=== PATIENT | female | born 2000 | race American Indian/Alaskan Native ===

== ENCOUNTER 2019-09-13 02:43 | Emergency (ER) | payer MEDICAID, OTHER ==
[2019-09-13 04:24] LABS: HCG Qualitative,Urine Negative (Negative)
[2019-09-13] MEDS ORDERED: MORPHINE 2 MG/1 ML INJ IV ONE (04:30)
[2019-09-13] MEDS ORDERED: SODIUM CHLORIDE 0.9% 1000 ML 1,000 ML IV ONE (04:30)
[2019-09-13] MEDS ORDERED: ONDANSETRON 4 MG/2 ML INJ IV ONE (04:30)
[2019-09-13 04:32] LABS: Bilirubin,Urine NEG (Negative); Blood,Urine NEG (Negative); Color,Urine Yellow (Yellow); Mucus,Urine FEW /HPF; Protein,Urine <15 mg/dL mg/dL (Negative); Urobilinogen,Urine < 2.0 mg/dL (<2.0); WBC,Urine < 1.0 /HPF (0.0-6.0)
[2019-09-13 05:07] LABS: Basophils % (Auto) 0.1 % (0.0-1.8); Eosinophils % (Auto) 0.3 % (0.0-4.3); Hemoglobin 11.2 gm/dl (10.1-14.3); Lymphocytes # (Auto) 1.4 K/mm3 (1.2-5.4); Lymphocytes % (Auto) 14.7 % (13.4-35.0); Mean Corpuscular HGB Conc 33 % (30-34); Mean Corpuscular Volume 86 fl (79-97); Monocytes # (Auto) 0.8 K/mm3 (0.0-0.8); Monocytes % (Auto) 8.6 % (0.0-7.3); Platelet Count 222 K/mm3 (140-440); Red Blood Count 3.93 M/mm3 (3.65-5.03); Red Cell Distribution Width 13.5 % (13.2-15.2)
[2019-09-13 05:35] LABS: Alanine Aminotransferase 11 units/L (7-56); Albumin 4.6 g/dL (3.9-5); BUN/Creatinine Ratio 30; Blood Urea Nitrogen 15 mg/dL (7-17); Calcium 9.3 mg/dL (8.4-10.2); Hemolysis Index 3
--- NOTE | 2019-09-13 06:23 | Cat Scan Report ---
CT ABDOMEN AND PELVIS WITH IV CONTRAST INDICATION: Abdominal pain. COMPARISON: None available. TECHNIQUE: Axial CT images were obtained through the abdomen and pelvis after 100 mL IV contrast. All CT scans a t this location are performed using CT dose reduction for ALARA by means of automated exposure contro l. FINDINGS -- ABDOMEN: Lung Bases: No acute abnormality. Liver: Normal. Gallbladder: Normal. Bile Ducts: Normal. Pancreas: Normal. Spleen: Normal. Adrenals: Normal. Right Kidney and Proximal Ureter: Normal. Left Kidney and Proximal Ureter: Normal. Stomach and Bowel: Normal. Lymph Nodes: No significant adenopathy. Aorta: No significant abnormality. IVC: Normal. Additional Findings: None. FINDINGS -- PELVIS: Urinary Bladder and Distal Ureters: Normal. Reproductive Organs: Peripherally enhancing fluid-filled structure in the right adnexa measures 4 cm in diameter.. Small amount of nonspecific gas seen within the cervical os. The uterus appears slightl y prominent. Moderate endometrial fluid. Appendix: Normal. Bowel: No acute abnormality. Free Fluid: Moderate to large in size, intermediate in density worrisome for hemoperitoneum of the lo wer pelvis. Lymph Nodes: No significant adenopathy. Additional Findings: None. Skeletal System: No acute abnormality. IMPRESSION: 1. Focal 4 cm mildly complex right ovarian cyst. 2. Moderate free pelvic fluid, nonspecific. This fluid is low to intermediate in density and may repr esent fluid with intermixed hemorrhage/hemoperitoneum of unknown source, possibly from a ruptured ova stephanie cyst.. Signer Name: Brad Oswald MD Signed: 09/13/2019 6:19 AM Workstation Name: [id number]
--- NOTE | 2019-09-13 06:39 | Emergency Department Report ---
<JONATHAN LARSON - Last Filed: 09/13/19 10:51> ED Abdominal Pain HPI - General Chief Complaint: Abdominal Pain Stated Complaint: STOMACH CRAMPS - Related Data Previous Rx's Medication Instructions Recorded Last Taken Type Acetaminophen/Codeine [Tylenol 1 tab PO Q6H PRN #12 tab 09/13/19 Unknown Rx /Codeine # 3 tab] Doxycycline Hyclate 100 mg PO Q12H #20 tablet. 09/13/19 Unknown Rx Promethazine [Phenergan] 25 mg PO Q6HR PRN #12 tab 09/13/19 Unknown Rx methylPREDNISolone [Medrol 4MG 4 mg PO QAM 6 Days #1 tab.ds.pk 09/13/19 Unknown Rx DOSEPAK (21 tabs)] metroNIDAZOLE [Flagyl] 500 mg PO Q12HR 7 Days #14 tab 09/13/19 Unknown Rx Allergies Allergy/AdvReac Type Severity Reaction Status Date / Time cat dander Allergy Hives Verified 03/03/16 02:21 lactase [From Dairy Aid] Allergy Hives Verified 03/03/16 02:21 mold Allergy Hives Verified 03/03/16 02:21 peanut Allergy Hives Verified 03/03/16 02:21 pesticide Allergy Hives Verified 03/03/16 02:21 shellfish derived Allergy Anaphylaxis Verified 03/03/16 02:52 BLACKBERRIES Allergy Hives Uncoded 03/03/16 02:21 MILDEW Allergy Hives Uncoded 03/03/16 02:21 SMOKE Allergy Hives Uncoded 03/03/16 02:21 ED Past Medical Hx - Medications Home Medications: Home Medications Medication Instructions Recorded Confirmed Last Taken Type Acetaminophen/Codeine [Tylenol 1 tab PO Q6H PRN #12 tab 09/13/19 Unknown Rx /Codeine # 3 tab] Doxycycline Hyclate 100 mg PO Q12H #20 tablet. 09/13/19 Unknown Rx Promethazine [Phenergan] 25 mg PO Q6HR PRN #12 tab 09/13/19 Unknown Rx methylPREDNISolone [Medrol 4MG 4 mg PO QAM 6 Days #1 tab.ds.pk 09/13/19 Unknown Rx DOSEPAK (21 tabs)] metroNIDAZOLE [Flagyl] 500 mg PO Q12HR 7 Days #14 tab 09/13/19 Unknown Rx ED Course - Reevaluation(s) Reevaluation #1: 09/13/19 09:47 request and nausea medication and pain medication. She is in no acute distress at present Reevaluation #2: 09/13/19 10:48 Patient given Zofran milligram ODT and hydrocodone 5/3-2 tablets by mouth for nausea and pain which has been relieved. ED Medical Decision Making - Lab Data Result diagrams: 09/13/19 04:43 09/13/19 04:43 Lab Results 09/13/19 09/13/19 09/13/19 Range/Units 04:43 04:43 Unknown WBC 9.6 (4.5-11.0) K/mm3 RBC 3.93 (3.65-5.03) M/mm3 Hgb 11.2 (10.1-14.3) gm/dl Hct 34.0 (30.3-42.9) % MCV 86 (79-97) fl MCH 29 (28-32) pg MCHC 33 (30-34) % RDW 13.5 (13.2-15.2) % Plt Count 222 (140-440) K/mm3 Lymph % (Auto) 14.7 (13.4-35.0) % [place] % (Auto) 8.6 H (0.0-7.3) % Eos % (Auto) 0.3 (0.0-4.3) % Baso % (Auto) 0.1 (0.0-1.8) % Lymph # 1.4 (1.2-5.4) K/mm3 [place] # 0.8 (0.0-0.8) K/mm3 Eos # 0.0 (0.0-0.4) K/mm3 Baso # 0.0 (0.0-0.1) K/mm3 Seg Neutrophils % 76.3 H (40.0-70.0) % Seg Neutrophils # 7.3 (1.8-7.7) K/mm3 Sodium 137 (137-145) mmol/L Potassium 4.0 (3.6-5.0) mmol/L Chloride 103.4 (98-107) mmol/L Carbon Dioxide 22 (22-30) mmol/L Anion Gap 16 mmol/L BUN 15 (7-17) mg/dL Creatinine 0.5 L (0.7-1.2) mg/dL Estimated GFR > 60 ml/min BUN/Creatinine Ratio 30 % Glucose 85 (65-100) mg/dL Calcium 9.3 (8.4-10.2) mg/dL Total Bilirubin 0.20 (0.1-1.2) mg/dL AST 17 (5-40) units/L ALT 11 (7-56) units/L Alkaline Phosphatase 46 (35-129) units/L Total Protein 8.4 H (6.3-8.2) g/dL Albumin 4.6 (3.9-5) g/dL Albumin/Globulin Ratio 1.2 % Lipase 27 (13-60) units/L Urine Color Yellow (Yellow) Urine Turbidity Clear (Clear) Urine pH 5.0 (5.0-7.0) Ur Specific [place] 1.026 (1.003-1.030) Urine Protein <15 mg/dl (Negative) mg/dL Urine Glucose (UA) Neg (Negative) mg/dL Urine Ketones Neg (Negative) mg/dL Urine Blood Neg (Negative) Urine Nitrite Neg (Negative) Ur Reducing Substances Not Reportable Urine Bilirubin Neg (Negative) Urine Ictotest Not Reportable Urine Urobilinogen < 2.0 (<2.0) mg/dL Ur Leukocyte Esterase Neg (Negative) Urine WBC (Auto) < 1.0 (0.0-6.0) /HPF Urine RBC (Auto) 1.0 (0.0-6.0) /HPF U Epithel Cells (Auto) 6.0 (0-13.0) /HPF Urine Mucus Few /HPF Urine HCG, Qual Negative (Negative) - Radiology Data Transvaginal ultrasound dictated by radiologist and report reviewed by myself. Please see report below. Findings [facility] [address] [place] [address] Ultrasound Report Signed Patient: ROBLES AMEZCUA MR#: [id number] : 2000 Acct:[id number] Age/Sex: 19 / F ADM Date: 09/13/19 Loc: ED Attending Dr: Ordering Physician: TINY AWAN Date of Service: 09/13/19 Procedure(s): US transvaginal Accession Number(s): [id number] cc: TINY AWAN ULTRASOUND TRANSVAGINAL HISTORY: Pelvic pain, pain after sex. TECHNIQUE: Transvaginal ultrasound images with color and spectral Doppler interrogation. COMPARISON: CT abdomen pelvis with contrast performed earlier the same day. FINDINGS: The uterus is anteverted and measures 7.5 x 2.7 x 3.8 cm. No evidence for uterine mass. The endometrium measures 9 mm in thickness. No focal mass or fluid collection. There is a large free fluid containing debris throughout the pelvis. No obvious encapsulated abscess. No normal right ovary is identified. There is a complex partially cystic mass with multiple septations in the right adnexa/cul-de-sac measuring up to 6.3 x 3.7 x 4.4 cm. There is peripheral blood flow demonstrated on spectral Doppler waveforms and color Doppler imaging but no internal flow. The left ovary measures 3.3 x 2.5 x 2.9 cm. A complex solid-appearing lesion is identified in the left ovary measuring up to 1.3 cm. Spectral Doppler waveforms demonstrate flow to the left ovary. IMPRESSION: Large complex masslike lesion in the right adnexa/right ovary as described above. The etiology of this is unclear. Considerations include a hemorrhagic ovarian cyst, cystic neoplasm, or possibly a tubo-ovarian abscess. Please correlate with the clinical presentation of the patient. Please note that a ruptured ectopic is not excluded. Large complex free fluid in the pelvis. 1.3 cm cyst predominantly solid lesion in the left ovary. Signer Name: Clint Sullivan Jr, MD Signed: 09/13/2019 8:02 AM Workstation Name: [id number] Transcribed By: TTR Dictated By: CLINT SULLIVAN JR, MD Electronically Authenticated By: CLINT SULLIVAN JR, MD Signed Date/Time: 09/13/19 0802 DD/ 0753 TD/TT: - Medical Decision Making Patient with complex ovarian cysts per ultrasound with free fluid . IMPRESSION: Large complex masslike lesion in the right adnexa/right ovary as described above. The etiology of this is unclear. Considerations include a hemorrhagic ovarian cyst, cystic neoplasm, or possibly a tubo-ovarian abscess. Please correlate with the clinical presentation of the patient. Please note that a ruptured ectopic is not excluded. Large complex free fluid in the pelvis. 1.3 cm cyst predominantly solid lesion in the left ovary I Spoke with Dr. Poole who is the attending physician in the emergency room and [facility] called and waiting call back. 09/13/19 10:[address] Gibbons from [facility] and gave her results of ultrasound and CT scan and also vital signs along with lab results and she wants patient to be discharged home on nausea medication, pain medication and Medrol Dosepak and to follow-up in office in 2 days. I discuss results the patient's and discharge plans and she is in agreement. Lab Work stable. Pain and nausea is controlled. Patient discharged home with prescription for Medrol Dosepak, Tylenol No. 3, Phenergan and doxycycline. ED Disposition Clinical Impression: Nausea and vomiting in adult, Complex cyst of right ovary, Abnormal peritoneal fluid, Bacterial vaginosis Abdominal pain Qualifiers: Abdominal location: lower abdomen, unspecified Qualified Code(s): R10.30 - Lower abdominal pain, unspecified Disposition: TO HOME OR SELFCARE Condition: Stable Instructions: Bacterial Vaginosis (ED), Ovarian Cyst (ED), Acute Nausea and Vomiting (ED), Abdominal Pain (ED) Additional Instructions: Follow-up with your [facility] physician in 24-48 hours for reevaluation. Take medications as needed for pain, complete pelvic rest. Return to the ED immediately if symptoms get worse. Prescriptions: Doxycycline Hyclate 100 mg PO Q12H #20 tablet.dr metroNIDAZOLE [Flagyl] 500 mg PO Q12HR 7 Days #14 tab methylPREDNISolone [Medrol 4MG DOSEPAK (21 tabs)] 4 mg PO QAM 6 Days #1 tab.ds.pk Promethazine [Phenergan] 25 mg PO Q6HR PRN #12 tab PRN Reason: Nausea Acetaminophen/Codeine [Tylenol /Codeine # 3 tab] 1 tab PO Q6H PRN #12 tab PRN Reason: Pain , Severe (7-10) Referrals: PRIMARY CARE, [Primary Care Provider] - 3-5 Days STEPHANIE GIBBONS MD [Staff Physician] - 09/15/19 Forms: Accompanied Note, Work/School Release Form(ED), STI Treatment and Prevention Print Language: KHMER <MERLIN STANTON - Last Filed: 09/15/19 22:53> ED Abdominal Pain HPI - General Source: patient Mode of arrival: Ambulatory Limitations: No Limitations - History of Present Illness Initial Comments: Patient is a nulliparous 19-year-old -[place] female with no past medical history who presents to the ED with complaint of acute onset persistent severe diffuse lower abdominal pain that radiates to the periumbilical area with intractable nausea and vomiting and diarrhea for the last 8 hours, worse in the last 2 hours after having protected sexual intercourse. Patient states that the pain is so severe she is unable to sit still or lay down because of significant pain. Patient denies fever, chills, dysuria, urinary frequency and urgency, vaginal bleeding, low back pain, dizziness, syncope, chest pain or shortness of breath or traumatic injury. MD Complaint: abdominal pain, other (nausea and vomiting) -: Sudden, hour(s) (8) Location: periumbilical, suprapubic Radiation: suprapubic Migration to: no migration Severity scale (0 -10): 8 Quality: cramping, aching, sharp Consistency: constant Improves With: nothing Worsens With: movement Associated Symptoms: denies other symptoms, nausea, vomiting, diarrhea. denies: fever, chills, constipation, dysuria, hematemesis, hematochezia, melena, hematuria, anorexia - Related Data LMP Date: 08/22/19 ED Review of Systems ROS: Stated complaint: STOMACH CRAMPS Other details as noted in HPI Constitutional: denies: chills, fever Eyes: denies: eye pain, eye discharge, vision change ENT: denies: ear pain, throat pain Respiratory: denies: cough, shortness of breath, wheezing Cardiovascular: denies: chest pain, palpitations Endocrine: no symptoms reported Gastrointestinal: abdominal pain, nausea, vomiting, diarrhea Genitourinary: denies: urgency, dysuria, discharge Musculoskeletal: denies: back pain, joint swelling, arthralgia Skin: denies: rash, lesions Neurological: denies: headache, weakness, paresthesias Psychiatric: denies: anxiety, depression Hematological/Lymphatic: denies: easy bleeding, easy bruising ED Past Medical Hx - Past Medical History Previous Medical History?: Yes Additional medical history: ECZEMA - Surgical History Past Surgical History?: No - Social History Smoking Status: Never Smoker Substance Use Type: Alcohol ED Physical Exam - General Limitations: No Limitations General appearance: alert, in no apparent distress - Head Head exam: Present: atraumatic, normocephalic - Eye Eye exam: Present: normal appearance, PERRL, EOMI Pupils: Present: normal accommodation - ENT ENT exam: Present: normal exam, normal orophraynx, mucous membranes moist, TM's normal bilaterally, normal external ear exam - Neck Neck exam: Present: normal inspection, full ROM. Absent: tenderness - Respiratory Respiratory exam: Present: normal lung sounds bilaterally. Absent: respiratory distress, wheezes, chest wall tenderness, accessory muscle use, decreased breath sounds - Cardiovascular Cardiovascular Exam: Present: normal rhythm, tachycardia, normal heart sounds. Absent: systolic murmur, diastolic murmur, rubs, gallop - GI/Abdominal GI/Abdominal exam: Present: soft, tenderness (palpable severe suprapubic and periumbilical rebound tenderness with guarding), guarding, rebound, normal bowel sounds, hyperactive bowel sounds. Absent: hypoactive bowel sounds, organomegaly - Extremities Exam Extremities exam: Present: normal inspection, full ROM - Back Exam Back exam: Present: normal inspection, full ROM. Absent: tenderness, muscle spasm, paraspinal tenderness - Neurological Exam Neurological exam: Present: alert, oriented X3, CN II-XII intact, normal gait, reflexes normal - Psychiatric Psychiatric exam: Present: normal affect, normal mood - Skin Skin exam: Present: warm, dry, intact, normal color. Absent: rash ED Course Vital Signs 09/13/19 09/13/19 09/13/19 02:48 09:52 10:51 Temperature 98.2 F 98.4 F Pulse Rate 106 H 112 H 100 H Respiratory 18 15 Rate Blood Pressure 103/67 Blood Pressure 106/71 [Left] O2 Sat by Pulse 100 99 Oximetry ED Medical Decision Making - Lab Data Result diagrams: 09/13/19 04:43 09/13/19 04:43 - Radiology Data Radiology results: report reviewed, image reviewed Findings [facility] [address] [place] [address] Cat Scan Report Signed Patient: ROBLES AMEZCUA MR#: [id number] : 2000 Acct:[id number] Age/Sex: 19 / F ADM Date: 09/13/19 Loc: ED Attending Dr: Ordering Physician: TINY AWAN Date of Service: 09/13/19 Procedure(s): CT abdomen pelvis w con Accession Number(s): [id number] cc: TINY AWAN CT ABDOMEN AND PELVIS WITH IV CONTRAST INDICATION: Abdominal pain. COMPARISON: None available. TECHNIQUE: Axial CT images were obtained through the abdomen and pelvis after 100 mL IV contrast. All CT scans at this location are performed using CT dose reduction for ALARA by means of automated exposure control. FINDINGS -- ABDOMEN: Lung Bases: No acute abnormality. Liver: Normal. Gallbladder: Normal. Bile Ducts: Normal. Pancreas: Normal. Spleen: Normal. Adrenals: Normal. Right Kidney and Proximal Ureter: Normal. Left Kidney and Proximal Ureter: Normal. Stomach and Bowel: Normal. Lymph Nodes: No significant adenopathy. Aorta: No significant abnormality. IVC: Normal. Additional Findings: None. FINDINGS -- PELVIS: Urinary Bladder and Distal Ureters: Normal. Reproductive Organs: Peripherally enhancing fluid-filled structure in the right adnexa measures 4 cm in diameter.. Small amount of nonspecific gas seen within the cervical os. The uterus appears slightly prominent. Moderate endometrial fluid. Appendix: Normal. Bowel: No acute abnormality. Free Fluid: Moderate to large in size, intermediate in density worrisome for hemoperitoneum of the lower pelvis. Lymph Nodes: No significant adenopathy. Additional Findings: None. Skeletal System: No acute abnormality. IMPRESSION: 1. Focal 4 cm mildly complex right ovarian cyst. 2. Moderate free pelvic fluid, nonspecific. This fluid is low to intermediate in density and may represent fluid with intermixed hemorrhage/hemoperitoneum of unknown source, possibly from a ruptured ovarian cyst.. Signer Name: Brad Oswald MD Signed: 09/13/2019 6:19 AM Workstation Name: [id number] Transcribed By: Dictated By: Brad Oswald MD Electronically Authenticated By: Brad Oswald MD Signed Date/Time: 09/13/19618 DD/ TD/TT: - Medical Decision Making This is a 19-year-old nulliparous -[place] female who presented to the ED with acute onset persistent severe suprapubic and periumbilical pain with nausea and vomiting and diarrhea for 8 hours worse in the last 2 hours after sexual intercourse. In the ED, patient is alert and oriented 3 and is in no acute distress but appears to be in significant pain and unable to lay flat because of severe pain in the abdomen. Patient is tachycardic but afebrile in triage. Lab test results were reviewed and all nonactionable including urinalysis. Abdomen pelvis CT scan with contrast shows a focal 4 cm mildly complex right ovarian cyst. There is also moderate free pelvic fluid, nonspecific. This fluid is low to intermediate in density and may represent fluid with intermixed hemorrhage/hemoperitoneum of unknown source, possibly from a ruptured ovarian cyst. Patient was treated for pain in the ED and on reevalu ation, patient's pain is well controlled with medications. Transvaginal ultrasound was ordered and is currently pending. The patient care was transferred to ms. Jonathan Larson NP at shift change at 0750 hours - Differential Diagnosis Appendicitis; Ruptured ovarian cyst; Tubovarian abscess; Ectopic ; Critical care attestation.: If time is entered above; I have spent that time in minutes in the direct care of this critically ill patient, excluding procedure time. ED Disposition Is pt being admited?: No Does the pt Need Aspirin: No Time of Disposition: 07:44
[2019-09-13] MEDS ORDERED: LIDOCAINE-MPF (1%) 10 MG/1 ML VIAL 5 ML INFILTRATI ONE (07:40)
[2019-09-13] MEDS ORDERED: AZITHROMYCIN 250 MG TAB PO ONE (07:41)
--- NOTE | 2019-09-13 08:07 | Ultrasound Report ---
ULTRASOUND TRANSVAGINAL HISTORY: Pelvic pain, pain after sex. TECHNIQUE: Transvaginal ultrasound images with color and spectral Doppler interrogation. COMPARISON: CT abdomen pelvis with contrast performed earlier the same day. FINDINGS: The uterus is anteverted and measures 7.5 x 2.7 x 3.8 cm. No evidence for uterine mass. The endometri um measures 9 mm in thickness. No focal mass or fluid collection. There is a large free fluid containing debris throughout the pelvis. No obvious encapsulated abscess. No normal right ovary is identified. There is a complex partially cystic mass with multiple septation s in the right adnexa/cul-de-sac measuring up to 6.3 x 3.7 x 4.4 cm. There is peripheral blood flow d emonstrated on spectral Doppler waveforms and color Doppler imaging but no internal flow. The left ovary measures 3.3 x 2.5 x 2.9 cm. A complex solid-appearing lesion is identified in the lef t ovary measuring up to 1.3 cm. Spectral Doppler waveforms demonstrate flow to the left ovary. IMPRESSION: Large complex masslike lesion in the right adnexa/right ovary as described above. The etiology of thi s is unclear. Considerations include a hemorrhagic ovarian cyst, cystic neoplasm, or possibly a tubo- ovarian abscess. Please correlate with the clinical presentation of the patient. Please note that a r uptured ectopic is not excluded. Large complex free fluid in the pelvis. 1.3 cm cyst predominantly solid lesion in the left ovary. Signer Name: Clint Sullivan Jr, MD Signed: 09/13/2019 8:02 AM Workstation Name: [id number]
[2019-09-13] MEDS ORDERED: HYDROcodone/ACETAMINOPHEN 5-325 MG TAB PO ONE (09:47)
[2019-09-13] MEDS ORDERED: ONDANSETRON 4 MG ODT TAB PO ONE (09:47)
[2019-09-13] MEDS ORDERED: cefTRIAXone/NS 2 GM/100 ML 2 GM/100 ML BAG IV ONE (09:50)
[2019-09-13 09:52] VITALS: BP 106/71
== END 2019-09-13 11:02 | disposition home or self-care (01) ==
LOC: ED 02:43
DX: N83.201 Unspecified ovarian cyst, right side (principal); N76.0 Acute vaginitis; R11.2 Nausea with vomiting, unspecified
CPT/HCPCS: 36415; 74177; 76830; 80053; 81001; 81025; 83690; 85025; 87210; 87591; 96361; 96372; 96374; 96375; 99285; J0696; J2270; J2405; J7030; Q9967; Q0162